=== PATIENT | female | born 1955 | race Caucasian/White ===

== ENCOUNTER 2019-05-06 16:47 | Inpatient (IN) | payer BC ==
[~2019-05-06] VITALS: Ht 165.1 cm; Wt 78.7 kg
--- NOTE | 2019-05-06 17:47 | NUR ---
PT TO ROOM FROM LOBBY
[2019-05-06] MEDS ORDERED: SODIUM CHLORIDE FLUSH 10ML SYR IVF ONE (18:00)
[2019-05-06 18:20] LABS: INTERNATIONAL NORMALIZED RATIO 1.19 (0.93-1.1); PROTHROMBIN TIME 12.4 Seconds (9.6-11.5)
[2019-05-06 18:22] LABS: ALANINE AMINOTRANSFERASE 50 U/L (12-78); ALBUMIN 4.3 g/dL (3.4-5.0); ANION GAP 6 mmol/L (5-15); CHLORIDE 113 mmol/L (98-107)
[2019-05-06 18:25] LABS: ALKALINE PHOSPHATASE 94 U/L (45-117); BILIRUBIN,TOTAL 1.1 mg/dL (0.2-1.0); CREATININE 0.66 mg/dL (0.55-1.02); TOTAL PROTEIN 7.1 g/dL (6.4-8.2)
--- NOTE | 2019-05-06 18:36 | NUR ---
PT HAS CO OF COUGHING OF "GLOBS OF BLOOD AND HAS HAD CHEST PAIN FOR 2 WEEKS" PT RESTING COMFORTABLE. VS STABLE.
[2019-05-06 18:39] LABS: MD YES; MEAN CORPUSCULAR HEMOGLOBIN 33.8 pg (27.0-34.8); MEAN CORPUSCULAR HGB CONC 34.3 g/dL (32.4-35.8); MEAN CORPUSCULAR VOLUME 98.7 fL (80-100); MEAN PLATELET VOLUME 8.2 fL (7.4-10.4); PLATELET COUNT 90 x10^3/uL (130-400); RED BLOOD COUNT 4.09 x10^6/uL (3.82-5.3)
[2019-05-06 18:47] LABS: EOS#(MANUAL) 0.06 x10^3/uL (0.0-0.4); EOS% (MANUAL) 1 % (1-7); LYMPH#(MANUAL) 1.74 x10^3/uL (1-3.4); LYMPHS% (MANUAL) 31 % (22-44); MONOS#(MANUAL) 0.39 x10^3/uL (0.3-2.7); MONOS% (MANUAL) 7 % (2-9); SEG#(MANUAL) 3.42 x10^3/uL (1.8-6.8); SEGS% (MANUAL) 61 % (42-75)
[2019-05-06 18:48] LABS: <RBC MORPHOLOGY> NORMAL
[2019-05-06 18:49] LABS: <PLATELET ESTIMATE> DECREASED; <PLT MORPHOLOGY> NORMAL PLT MORPH
--- NOTE | 2019-05-06 19:05 | NUR ---
NOTIFIED BY AUDIO DIRECTOR THAT PT'S RIGHT A/C IV SITE INFILTRATED, ARM ELEVATED ON PILLOW AND ICE APPLIED TO SITE, AUDIO DIRECTOR STARTED NEW IV SITE TO LEFT A/C 20G. ERP AWARE
--- NOTE | 2019-05-06 19:10 | NUR ---
PT RESTING ON GURNEY, MONITORS IN PLACE, SIDERAILS UP X2, CALL LIGHT WITHIN REACH, DENIES NEEDS. AWAITING CTA RESULT
[2019-05-06] MEDS ORDERED: METR45CR TP (19:16)
[2019-05-06] MEDS ORDERED: TACR0.5C4 TP (19:16)
--- NOTE | 2019-05-06 19:57 | NUR ---
PT RESTING CALMLY, WARM PACK IN PLACE TO RIGHT A/C, DENIES FURTHER NEEDS, MONITORS IN PLACE, CALL LIGHT WITHIN REACH. CHART UP FOR RECHECK
[2019-05-06] MEDS ORDERED: POLYETHYLENE GLYCOL 17 GM PACKET PO PRN (22:00)
[2019-05-06] MEDS ORDERED: GUAIFENESIN/DM 200-20MG, 10ML UDC PO PRN (22:00)
[2019-05-06] MEDS ORDERED: BISACODYL 10 MG SUPP PR PRN (22:00)
[2019-05-06] MEDS ORDERED: ONDANSETRON ODT 4 MG PO PRN (22:00)
[2019-05-06] MEDS: SODIUM CHLORIDE FLUSH 10ML SYR IVF SCH (23:03)
[2019-05-06 23:04] VITALS: BP 153/95
[2019-05-07 01:00] VITALS: BP 118/75
[2019-05-07] MEDS: ACETAMINOPHEN 325 MG TABLET PO PRN ×2 (03:32→08:48)
[2019-05-07 04:27] LABS: ALANINE AMINOTRANSFERASE 43 U/L (12-78); ALBUMIN 3.7 g/dL (3.4-5.0); ANION GAP 8 mmol/L (5-15); CALCIUM 8.7 mg/dL (8.5-10.1); CHLORIDE 114 mmol/L (98-107); CREATININE 0.63 mg/dL (0.55-1.02)
[2019-05-07 04:29] LABS: ALKALINE PHOSPHATASE 79 U/L (45-117); BILIRUBIN,TOTAL 0.9 mg/dL (0.2-1.0); TOTAL PROTEIN 6.3 g/dL (6.4-8.2)
[2019-05-07 04:32] LABS: MEAN CORPUSCULAR HEMOGLOBIN 34.2 pg (27.0-34.8); MEAN CORPUSCULAR HGB CONC 34.8 g/dL (32.4-35.8); MEAN CORPUSCULAR VOLUME 98.1 fL (80-100); PLATELET COUNT 73 x10^3/uL (130-400); RED BLOOD COUNT 3.59 x10^6/uL (3.82-5.3)
[2019-05-07 07:05] VITALS: BP 108/69
[2019-05-07 07:14] LABS: BASOPHILS # (AUTO) 0.02 x10^3/uL (0-0.1); BASOPHILS % (AUTO) 0 % (0-1); EOSINOPHILS # (AUTO) 0.06 x10^3/uL (0-0.4); EOSINOPHILS % (AUTO) 1 % (1-7); LYMPHOCYTES # (AUTO) 1.65 x10^3/uL (1-3.4); LYMPHOCYTES % (AUTO) 32 % (22-44); MD SCAN; MONOCYTES # (AUTO) 0.37 x10^3/uL (0.2-0.8); MONOCYTES % (AUTO) 7 % (2-9); NEUTROPHILS # (AUTO) 3.04 x10^3/uL (1.8-6.8); NEUTROPHILS % (AUTO) 59 % (42-75)
[2019-05-07] MEDS: SODIUM CHLORIDE FLUSH 10ML SYR IVF SCH (08:51)
[2019-05-07] MEDS ORDERED: SENNA/DOCUSATE TABLET PO SCH (09:00)
[2019-05-07] MEDS ORDERED: TACROLIMUS 0.5 MG CAPSULE PO SCH (09:00)
[2019-05-07] MEDS ORDERED: TACROLIMUS MC SCH (09:30)
[2019-05-07 13:35] VITALS: BP 129/84
== END 2019-05-07 15:26 | disposition home or self-care (01) | DRG 813 ==
LOC: ED 19:43 → EDIP 21:45 → 3NW 22:01
PROVIDERS: ADMIT Internal Medicine; ATTEND Internal Medicine
DX: D69.3 Immune thrombocytopenic purpura (principal); J40 Bronchitis, not specified as acute or chronic; K76.89 Other specified diseases of liver; L71.9 Rosacea, unspecified; Z80.9 Family history of malignant neoplasm, unspecified; Z82.5 Family history of asthma and other chronic lower respiratory diseases; Z86.19 Personal history of other infectious and parasitic diseases; Z90.49 Acquired absence of other specified parts of digestive tract; Z90.711 Acquired absence of uterus with remaining cervical stump; R16.1 Splenomegaly, not elsewhere classified; R63.4 Abnormal weight loss; Z68.28 Body mass index [BMI] 28.0-28.9, adult; Z88.8 Allergy status to other drugs, medicaments and biological substances; Z91.013 Allergy to seafood
CPT/HCPCS: 36415; 71275; 80053; 80074; 85025; 85610; 85730; 87806; G0378; G0475

== ENCOUNTER → 2019-05-06 | Outpatient (CLI) | payer BC ==
[~2019-05-06] MED LIST: METR45CR TP; TACR0.5C4 TP
== END | disposition home or self-care (01) ==
LOC: RAD 16:09
PROVIDERS: ATTEND Internal Medicine
DX: R05 Cough (principal)
CPT/HCPCS: 71046

== ENCOUNTER 2019-05-25 15:13 | Outpatient (CLI) | payer MEDICARE, BC | END 2019-05-25 23:59 | disposition home or self-care (01) | LOC: LAB 15:13 | PROVIDERS: ATTEND Internal Medicine | DX: R04.2 Hemoptysis (principal) | CPT/HCPCS: 36415; 86635; 86790 ==